=== PATIENT | female | born 1975 | race Caucasian/White ===

== ENCOUNTER 2016-09-30 07:35 | Day surgery (SDC) | payer OTHER ==
[~2016-09-30] VITALS: Ht 167.6 cm; Wt 142.8 kg
[~2016-09-30 07:35] MED LIST: CIPRO500 MG PO; CYMBALTA60 MG; EFFEXOR XR75 MG PO; FEOSOL325 MG PO; FERROUS SULFAT325 MG PO; LOMOTIL TABLET1 EACH PO; LYRICA100 MG PO; REQUIP0.5 MG PO; ULTRAM50 MG PO
== END 2016-09-30 09:12 | disposition home or self-care (01) ==
LOC: PAIN 07:35 → SDC 08:15 → PAIN 09:12
PROC: 3E0S3BZ Introduction of Anesthetic Agent into Epidural Space, Percutaneous Approach (ICD-10-PCS; principal; 2016-09-30)
DX: M54.16 Radiculopathy, lumbar region (principal); M47.896 Other spondylosis, lumbar region; M51.26 Other intervertebral disc displacement, lumbar region; F41.1 Generalized anxiety disorder; F19.20 Other psychoactive substance dependence, uncomplicated
CPT/HCPCS: J1100; J2250; J3010

== ENCOUNTER 2017-02-21 14:16 | Day surgery (SDC) | payer OTHER ==
[~2017-02-21] VITALS: Ht 167.6 cm; Wt 135.2 kg
[~2017-02-21 14:16] MED LIST changes: +MOTRIN800 MG PO
== END 2017-02-21 15:38 | disposition home or self-care (01) ==
LOC: PAIN 14:16 → SDC 14:45 → PAIN 14:45
DX: M47.26 Other spondylosis with radiculopathy, lumbar region (principal); M51.16 Intervertebral disc disorders with radiculopathy, lumbar region; M96.1 Postlaminectomy syndrome, not elsewhere classified; M48.06 Spinal stenosis, lumbar region; E66.01 Morbid (severe) obesity due to excess calories; Z68.42 Body mass index [BMI] 45.0-49.9, adult; F32.9 Major depressive disorder, single episode, unspecified; Z79.891 Long term (current) use of opiate analgesic
CPT/HCPCS: J1100; J2250; J3010

== ENCOUNTER 2017-05-10 14:23 | Day surgery (SDC) | payer OTHER ==
[~2017-05-10] VITALS: Ht 165.1 cm; Wt 132.4 kg
== END 2017-05-10 16:45 | disposition home or self-care (01) ==
LOC: PAIN 14:23
DX: M47.26 Other spondylosis with radiculopathy, lumbar region (principal); M51.16 Intervertebral disc disorders with radiculopathy, lumbar region; M48.06 Spinal stenosis, lumbar region; M96.1 Postlaminectomy syndrome, not elsewhere classified; E66.01 Morbid (severe) obesity due to excess calories; Z68.42 Body mass index [BMI] 45.0-49.9, adult; F19.20 Other psychoactive substance dependence, uncomplicated; D50.9 Iron deficiency anemia, unspecified; E53.8 Deficiency of other specified B group vitamins; Z79.891 Long term (current) use of opiate analgesic
CPT/HCPCS: J1100; J2250; J3010

== ENCOUNTER 2017-06-07 14:38 | Day surgery (SDC) | payer OTHER ==
[~2017-06-07] VITALS: Ht 167.6 cm; Wt 135.2 kg
[~2017-06-07 14:38] MED LIST changes: +CYMBALTA60 MG PO; +LYRICA150 MG PO; +VALTREX1000 MG PO
== END 2017-06-07 16:30 | disposition home or self-care (01) ==
LOC: PAIN 14:38 → SDC 15:00 → PAIN 15:00
DX: M47.26 Other spondylosis with radiculopathy, lumbar region (principal); M51.16 Intervertebral disc disorders with radiculopathy, lumbar region; M48.061 Spinal stenosis, lumbar region without neurogenic claudication; E66.01 Morbid (severe) obesity due to excess calories; Z68.42 Body mass index [BMI] 45.0-49.9, adult; Z79.891 Long term (current) use of opiate analgesic; F41.8 Other specified anxiety disorders; D50.9 Iron deficiency anemia, unspecified; M96.1 Postlaminectomy syndrome, not elsewhere classified
CPT/HCPCS: J1100; J1885; J2250; J3010

== ENCOUNTER 2017-12-22 08:39 | Day surgery (SDC) | payer OTHER ==
[~2017-12-22] VITALS: Ht 167.6 cm; Wt 150.0 kg
== END 2017-12-22 10:45 | disposition home or self-care (01) ==
LOC: PAIN 08:39 → SDC 09:00 → PAIN 09:00
DX: M47.816 Spondylosis without myelopathy or radiculopathy, lumbar region (principal); M51.26 Other intervertebral disc displacement, lumbar region; M54.16 Radiculopathy, lumbar region; E66.01 Morbid (severe) obesity due to excess calories; Z68.43 Body mass index [BMI] 50.0-59.9, adult; F19.20 Other psychoactive substance dependence, uncomplicated
CPT/HCPCS: J1030; J1885; J2250; S0020

== ENCOUNTER 2018-01-31 07:42 | Day surgery (SDC) | payer OTHER ==
[~2018-01-31] VITALS: Ht 165.1 cm; Wt 154.2 kg
== END 2018-01-31 09:20 | disposition home or self-care (01) ==
LOC: PAIN 07:42
DX: M47.816 Spondylosis without myelopathy or radiculopathy, lumbar region (principal); M51.16 Intervertebral disc disorders with radiculopathy, lumbar region; M48.061 Spinal stenosis, lumbar region without neurogenic claudication; M96.1 Postlaminectomy syndrome, not elsewhere classified; E66.01 Morbid (severe) obesity due to excess calories; Z68.43 Body mass index [BMI] 50.0-59.9, adult; Z88.5 Allergy status to narcotic agent; Z91.040 Latex allergy status; F41.9 Anxiety disorder, unspecified
CPT/HCPCS: J1030; J2250; S0020